=== PATIENT | female | born 1965 | race Caucasian/White ===

== ENCOUNTER 2019-02-24 07:15 | Day surgery (SDC) | payer OTHER ==
[~2019-02-24] VITALS: Ht 167.6 cm; Wt 89.8 kg
--- NOTE | 2019-02-24 08:39 | NUR ---
02/24/19 0839 Alyssa Kearns 0821 PT ARRIVED IN PACU SLEEPY WITH NO C/O'S. ABD SOFT. 0830 SITTING UP IN BED SIPPING ON WATER.
--- NOTE | 2019-02-25 06:12 | OR ---
[facility] [address] [place], [place] [address] Signed DATE OF OPERATION: 02/24/2019 SURGEON: Lukas Lanza MD PREOPERATIVE DIAGNOSES: 1. Mother with colonic polyps in her 70s. 2. Brother with colonic polyps in his 50s. POSTOPERATIVE DIAGNOSES: 1. Minimal internal hemorrhoids. 2. Long redundant colon. PROCEDURE: Colonoscopy without biopsy. ESTIMATED BLOOD LOSS: None. INDICATIONS: Cristy is a 53-year-old, obese female, asked to see me for her initial colonoscopy. Her mother had colonic polyps in her 70s. In fact, she had part of her colon removed just a few years ago because of the polyps. Her brother has had colonic polyps removed in his 50s. She tells me she has no lower GI complaints. In the office, I gave her a brochure on colonoscopy. We had reviewed that together. She understands the nature of the test along with the risks including, but not limited to gas bloating, crampy abdominal pain, bleeding, perforation requiring surgery, and missed diagnosis. She also understands the need for IV conscious sedation. She had expressed understanding and wished to proceed. PROCEDURE NOTE: Cristy was taken into our endoscopy suite and placed in the left lateral decubitus position. She was given a total of 10 mg of Versed and 200 mcg of fentanyl to cover the case. A digital rectal exam was performed and this was unremarkable. After this, the camera was inserted and advanced under direct visualization of camera. She has a long redundant colon. Fortunately, she had an excellent prep. It took extra sedation and abdominal compression in order to advance the scope. We had to rotate Cristy into the supine position and back into the left lateral decubitus position and eventually made it up to the ileocecal valve. After this, the scope was slowly withdrawn. We saw no pathology throughout her entire colon or rectum. Upon retroflexion of the scope, she does have small internal hemorrhoid columns. After this, the gas was suctioned out and Electronically Signed By: LUKAS LANZA MD 02/25/19 0612 PATIENT NAME: CRISTY HE OPERATIVE REPORT DATE OF : 67 REPORT #: [id number] PHYSICIAN: LUKAS LANZA MD PCP: PERCY PAN MD REPORT IS CONFIDENTIAL AND NOT TO BE RELEASED WITHOUT AUTHORIZATION [address] [place], [place] [address] Signed colonoscope removed. Cristy tolerated the procedure quite well. RECOMMENDATIONS: Cristy can follow up in 5 years for repeat colonoscopy. MD MARY Buckner/JOSUEL /[id number] cc: MD Percy Buckner MD Copies: LUKAS LANZA MD, RUSSELL BARR MD ~ Electronically Signed By: LUKAS LANZA MD 02/25/19 0612 PATIENT NAME: CRISTY HE OPERATIVE REPORT DATE OF : 67 REPORT #: [id number] PHYSICIAN: LUKAS LANZA MD PCP: PERCY PAN MD REPORT IS CONFIDENTIAL AND NOT TO BE RELEASED WITHOUT AUTHORIZATION
== END 2019-02-24 09:00 | disposition home or self-care (01) ==
LOC: DS 07:15 → OPS 07:15 → DS 08:15 → OPS 08:15
PROVIDERS: Colon & Rectal Surgery
PROC: 0DJD8ZZ Inspection of Lower Intestinal Tract, Via Natural or Artificial Opening Endoscopic (ICD-10-PCS; principal; 2019-02-24 08:15)
DX: Z12.11 Encounter for screening for malignant neoplasm of colon (principal); K64.8 Other hemorrhoids; Q43.8 Other specified congenital malformations of intestine; Z88.2 Allergy status to sulfonamides; Z83.71 Family history of colonic polyps; Z98.890 Other specified postprocedural states
CPT/HCPCS: 99153; G0500; J2250; J3010; J7121

== ENCOUNTER 2019-12-31 06:00 | Day surgery (SDC) | payer OTHER ==
[~2019-12-31] VITALS: Ht 167.6 cm; Wt 89.0 kg
[~2019-12-31 06:00] MED LIST: FLUARIX QU60 MCG/0.7
[2019-12-31] MEDS ORDERED: MULTI VITAMIN1 EACH PO (06:20)
--- NOTE | 2019-12-31 07:08 | NUR ---
FARZAD TAVERA INTO ROOM AFTER EKG DONE, PATIENT MEDICATED FOR HIGH BLOOD PRESSURE. THEN PATIENT CASE HAS BEEN POSTPONED SECONDARY TO ANOTHER CASE BEING EMERGENT. PATIENT RESTING BACK IN BED. BP HAS LOWERED WITH MEDICATION 186/97 P 54 RR16 02 100%RA. PATIENT DENIES ANY DIZZINESS, APPEARS TO BE TOLERATING MEDICATION WELL. FARZAD TAVERA SET BP TO CYCLE [id number]. PATIENT AWARE OF BEING POSTPONED. PROVIDED WARM BLANKETS.
--- NOTE | 2019-12-31 07:20 | NUR ---
PATIENT RESTING WITH EYES CLOSED, AT BEDSIDE. BP IN THE 170S, SWITCHED TO LEFT ARM TO PROVIDE RIGHT ARM WITH A BREAK FROM BLOOD PRESSURES.
--- NOTE | 2019-12-31 08:20 | NUR ---
PATIENT CONTINUING TO REST BACK IN BED, BLOOD PRESSURE SUSTAINING IN THE 170S. NO NEEDS AT THIS TIME.
--- NOTE | 2019-12-31 10:14 | NUR ---
PATIENT BLOOD PRESSURE CONTINUES TO AVERAGE 170S SYSTOLIC. PATIENT APPEARS CALM RESTING BACK IN BED. NO COMPLAINTS OF PAIN. HAS BEEN UP TO BATHROOM.
--- NOTE | 2019-12-31 10:38 | NUR ---
PATIENT TO OR.
--- NOTE | 2019-12-31 12:29 | NUR ---
12/31/19 1229 Sheets,Pooja 1218 PT ARRIVED TO PACU ON 10L VIA MASK, PT WAKES TO VERBAL STIMULI AND IS REORIENTED TO PACU. RESP EVEN AND UNLABROED.
--- NOTE | 2019-12-31 12:37 | EKG ---
[facility] [address] [facility] [place], [place] [address] Signed Normal sinus rhythm Normal ECG No previous ECGs available Confirmed by MAGGIE IZQUIERDO MD ([id number]) on 12/31/2019 12:36:52 PM Electronically Signed By: MAGGIE IZQUIERDO MD 12/31/19 1237 PATIENT NAME: DERRICK HE Electrocardiogram DATE OF : 67 PHYSICIAN: MAGGIE IZQUIERDO MD REPORT #: [id number] REPORT IS CONFIDENTIAL AND NOT TO BE RELEASED WITHOUT AUTHORIZATION
--- NOTE | 2019-12-31 13:08 | NUR ---
PATIENT BACK TO ROOM FROM PACU, BEDSIDE REPORT ANNALEE SALINAS. DRESSING TO LAP SITES OF ABDOMEN C/D/I. SUN PAD DRY. DIANA IN PLACE, VOIDING FLOURESCENT YELLOW URINE. PATIENT APPEARS DROWSY, RESTING EYES. DR. SMITH CALLED AND NOTIFIED PATIENT OF SURGERY. CALL LIGHT WITH REACH, WARM AIR AT BEDSIDE. NO OTHER NEEDS AT THIS TIME.
--- NOTE | 2019-12-31 13:48 | NUR ---
PATIENT TOLERATING SIPS OF WATER AND SNACKS. NO NAUSEA. REPORTS PAIN NOW 6/10 ON PAIN SCALE, REPORTS SHARP CRAMPING. REQUESTING PAIN MEDICATION. ADMINISTERED PAIN MEDICATION PER APR.
--- NOTE | 2019-12-31 14:15 | NUR ---
PATIENT REQUESTED SECOND PAIN PILL PER MEDICATION ORDER ON APR. PATIENT STATES PAIN MORE TOLERABLE. PLAN TO GET UP AND AMBULATE ONCE PAIN MEDICATION IS EFFECTIVE. NO OTHER NEEDS AT THIS TIME.
--- NOTE | 2019-12-31 15:03 | NUR ---
BANDAIDS TO ABDOMEN C/D/I. PATIENT REPORTS PAIN WELL CONTROLLED. UP AMBULATING IN HALLS, STEADY ON FEET. REMOVED DIANA CATHETER WITH 1200 IN BAG OF FLOURESCENT YELLOW URINE. PATIENT BACK TO BED, PROVIDED JUICE AND ICE WATER. PATIENT RESTING BACK IN BED, CALL LIGHT WITHIN REACH.
--- NOTE | 2019-12-31 15:30 | NUR ---
PATIENT UP AND VOIDED 400 ML OF FLOURESCENT YELLOW URINE, BLADDER SCAN <50 ML. PATIENT REPORTS WANTING TO GO HOME. CALLED AND LET HIM KNOW PATIENT WAS GETTING READY TO GO. PATIENT REPORTS PAIN WELL CONTROLLED 2/10 ON PAIN SCALE. NO NAUSEA.
--- NOTE | 2019-12-31 16:30 | NUR ---
PROVIDED PATIENT WITH DISCHARGE INSTRUCTION. ANSWERED QUESTIONS AND CONCERNS. PROVIDED PATIENT WHEELCHAIR RIDE TO FRONT. SCRIPT IN FOLDER. PATIENT ABLE TO TRANSFER INTO CAR WELL.
--- NOTE | 2020-01-03 09:44 | OR ---
[facility] [address] [place], [place] [address] Signed DATE OF OPERATION: 12/31/2019 SURGEON: Bakari Saenz MD Patient of Dr. Saenz PREOPERATIVE DIAGNOSIS: Simple and complex endometrial hyperplasia without atypia. POSTOPERATIVE DIAGNOSIS: Simple and complex endometrial hyperplasia without atypia. PROCEDURE: Total laparoscopic hysterectomy with bilateral salpingectomy and cystoscopy. ASSISTANTS: 1. Dr. Alyssa Chirinos. 2. Dr. Micah Henriquez. ANESTHESIA: General. ESTIMATED BLOOD LOSS: 10 mL. COMPLICATIONS: None. DRAINS: Elias to bladder. FINDINGS: Anterior cul-de-sac was minimally scarred from previous , otherwise normal. The posterior cul-de-sac was free of any endometriosis or adhesions. The 2 uterosacral ligaments were somewhat close together in the midline, but no adhesions. Uterus normal size and shape. The left tube was very long. No evidence of endometriosis. No adhesions. Left ovary was slightly elongated, but normal-sized with a small, approximately 2 cm simple cyst on the end. No adhesions. The right tube was long, otherwise no adhesions and normal-appearing fimbriated end. The right ovary has normal size and shape without any evidence of endometriosis or adhesions. The rest of the Electronically Signed By: BAKARI SAENZ MD 01/03/20 0944 PATIENT NAME: DERRICK HE OPERATIVE REPORT DATE OF : 67 REPORT #: [id number] PHYSICIAN: BAKARI SAENZ MD PCP: PERCY WESTON MD REPORT IS CONFIDENTIAL AND NOT TO BE RELEASED WITHOUT AUTHORIZATION [facility] [address] [place], [place] [address] Signed pelvis was free of any masses or adhesions. DESCRIPTION OF PROCEDURE: The patient was brought into the operating room, placed in supine position. After adequate general anesthesia was obtained, was placed in the dorsal lithotomy position, prepped and draped in usual sterile fashion. Elias catheter was placed in the bladder. A weighted speculum was placed in the vagina and the anterior lip of cervix grasped with an Allis clamp. The cervix was serially dilated up to a #7 [place] Island[place] dilator and then the [employer] uterine manipulator was inserted into the uterine fundus. The balloon filled with water. Allis clamp and weighted speculum were removed and the cervical cap slid up against the cervix. The vaginal cup was then slid up against the cervical cap and tightened in place to hold the cervical cap around the cervix. Attention was then drawn to the abdomen. A small infraumbilical skin incision was made with a scalpel after injecting the area with 0.25% Marcaine with epinephrine. The subcutaneous tissue was dissected with Metzenbaum scissors and the fascia identified, grasped, hemostats elevated, nicked with Metzenbaum scissors, and extended in transverse fashion using Metzenbaum scissors. Retention stitches of 0 Vicryl suture were placed above and below the incision. Finger dissection was used to bluntly enter the peritoneum and the Quentin cannula and sleeve then entered the abdomen under direct visualization. The balloon was filled and the outer sleeve placed down on the skin and tightened in place. The two retention stitches were attached to the sleeve to help further support the sleeve. The trocar was removed and laparoscope with video attachment entered the abdomen under direct visualization. Carbon dioxide was used as distending medium. The above findings were noted. On the left side just below the level of the umbilicus approximately 10 cm lateral to the midline skin, the abdominal wall was transilluminated to attempt to avoid any vessels. The area injected with 0.25% Marcaine with epinephrine and then a small skin incision made with a scalpel. A bladed 5-mm trocar and sleeve entered the abdomen under direct visualization. The trocar was removed and the balloon filled with air. Blunt grasper inserted through this port. On the right side again, approximately 10 cm lateral to midline and just below the level of the umbilicus, the abdominal wall was transilluminated. The area injected with 0.25% Marcaine with epinephrine and a skin incision made. A Veress needle with expandable sleeve was placed in the abdomen under direct visualization. The Veress needle was removed and expandable trocar with port was placed through the expandable sleeve under direct visualization into the abdomen. The trocar was removed and 2nd grasper inserted. The above findings were confirmed. The Liga-Sure bipolar cautery forceps were then used for dissection. Both fallopian tubes were removed by cauterizing down the length of the mesosalpinx and then at the proximal end of the tube, cauterizing and cutting across the tube and removing the tubes through the right lateral port. The right utero-ovarian ligament was then cauterized in Electronically Signed By: BAKARI SAENZ MD 01/03/20 0944 PATIENT NAME: DERRICK HE OPERATIVE REPORT DATE OF : 67 REPORT #: [id number] PHYSICIAN: BAKARI SAENZ MD PCP: PERCY WESTON MD REPORT IS CONFIDENTIAL AND NOT TO BE RELEASED WITHOUT AUTHORIZATION [address] [address] Signed several places and cut and the right round ligament cauterized in several places and cut, and upper broad ligament cauterized and cut. The anterior and posterior leaves of the broad ligament were then , cauterized, and cut down the length of the broad ligament close to the uterus and down to the cup staying inside the cup and extending the dissection to the midline. The uterine vessels were then exposed and these were cauterized in several places and cut then the paravaginal tissue within the cervical cap, which could be palpated, was cauterized and cut down leaving just the vaginal wall. Same procedure was done on the left side, cauterizing the uteroovarian ligament in 3 places and cutting this, cauterizing and cutting the round ligament and upper pedicle and then individually cauterizing and cutting the anterior posterior leaves of the broad ligament near the uterus and extending this dissection inside the cervical cap to join the previous dissection from the other side. The uterine vessels on this side were exposed. Then, once visualized, were cauterized at several places and cut again staying inside the cervical cap, which could be palpated. The paravaginal tissue was cauterized and cut down to the vaginal wall. At this point, the Sonicision was brought into the operating field and posterior colpotomy made in the groove of the cervical cap in the midline and the dissection carried out through the vaginal wall in the groove of the cervical cap from posterior to anterior on the right and then posterior to anterior on the left, joining anteriorly in the midline the uterus and cervix from the vaginal wall. The uterus was brought out through the vagina and a lap filled glove placed in the vagina to allow the abdomen to be re-insufflated. The entire pelvis was irrigated, suctioned, and examined and noted to have good hemostasis. The Endo Stitch with barbed suture was then placed through the right port and the Endo Stitch was then used to close the vaginal cuff, starting at the right uterosacral ligament and stitching from posterior to anterior through the posterior cuff, placing the suture through the loop at the end of the suture and then placing the suture from posterior to anterior in the anterior edge of the cuff at the right angle. The stitches were continued posterior to anterior individually closing the posterior edge and the anterior edge across from right to left until reaching the left uterosacral ligament. The cuff extended slightly past the uterosacral ligaments, which were somewhat close to midline, so the left angle was closed in the final two stitches superficially through just the mucosa avoiding tenting or taking any deep stitches to avoid the ureter. Upon reaching the angle, the stitch was taken back through the combined cuff to the midline and laparoscopic scissors used to cut the suture against the vaginal wall. The entire pelvis was re-examined, irrigated, suctioned, examined, and noted to have good hemostasis. At this point, all instruments were removed. The gas allowed to escape and the sleeves removed. The infraumbilical incision was closed using running stitch of 0 Vicryl suture. The two retention stitches were tied together Electronically Signed By: BAKARI SAENZ MD 01/03/20 0944 PATIENT NAME: DERRICK EH OPERATIVE REPORT DATE OF : 67 REPORT #: [id number] PHYSICIAN: BAKARI SAENZ MD PCP: PERCY WESTON MD REPORT IS CONFIDENTIAL AND NOT TO BE RELEASED WITHOUT AUTHORIZATION [address] [address] Signed for further support. The 3 skin incisions were closed using subcuticular stitches of 4-0 Vicryl. The lap filled glove was removed from the vagina. Elias catheter removed and cystoscopy performed. This was done by placing a 70-degree cystoscope through the urethra while using sterile water as distending medium and entering the bladder. The entire bladder was inspected. The dome and both sides were noted to be free of any holes, puckering, or sutures. Both ureteral orifices were identified and showed good flow of urine, so the cystoscope was removed, the bladder drained, and the sleeve removed. The Elias catheter was placed back in the bladder. The patient tolerated the procedure well, went to recovery room in good condition. The sponge, needle, and instrument count were correct at the end of the procedure. The uterus, cervix, and fallopian tubes were sent to Pathology for identification. Bakari Saenz MD MJB/MODL /[id number] cc: Percy Weston MD Copies: PERCY WESTON MD ~ Electronically Signed By: BAKARI SAENZ MD 01/03/20 0944 PATIENT NAME: DERRICK HE OPERATIVE REPORT DATE OF : 67 REPORT #: [id number] PHYSICIAN: BAKARI SAENZ MD PCP: PERCY WESTON MD REPORT IS CONFIDENTIAL AND NOT TO BE RELEASED WITHOUT AUTHORIZATION
--- NOTE | 2020-01-05 12:14 | PATH ---
[facility] [address] [place], [place] [address] Signed SPECIMEN(S): A CERVIX, UTERUS, AND TUBES SPECIMEN SOURCE: A. CERVIX, UTERUS, AND TUBES CLINICAL HISTORY: Benign endometrial hyperplasia. TLH, BS, cysto. FINAL PATHOLOGIC DIAGNOSIS: Uterus, cervix, and bilateral fallopian tubes, hysterectomy and bilateral salpingectomy: - Cervix: No histopathologic abnormality. - Endometrium: Focal simple hyperplasia arising in a background of proliferative endometrium. - Myometrium: Adenomyosis and leiomyomata (1.0 cm in greatest dimension). - Serosa: No histopathologic abnormality. - Fallopian tubes: No histopathologic abnormality. - Negative for malignancy. COMMENT: As part of [employer] Quality Improvement Program, selected slides of this case were reviewed by another member of our pathology staff. The endometrium is poorly preserved, thus multiple additional sections of endometrium are examined; no carcinoma is identified. NAL:NRT:cml:C2NR MICROSCOPIC EXAMINATION: Histologic sections of all submitted blocks are examined by light microscopy. These findings, together with the gross examination, support the pathologic diagnosis. GROSS DESCRIPTION: The specimen, labeled "MC," and designated on the requisition "cervix, uterus, bilateral fallopian tubes," is received in formalin and consists of a uterus (102 gram, 7.0 x 6.2 x 4.2 cm), attached cervix (2.0 cm in length x 2.3 cm in diameter with pink-villagomez to hemorrhagic, roughened cervical mucosa and patent circular os (0.6 cm in diameter) and two detached pink-villagomez, fimbriated fallopian tubes (7.7 cm in length x 0.6 cm in diameter and 7.9 cm in length x 1.0 cm in diameter). One fallopian tube is arbitrarily inked blue and both fallopian tubes are serially sectioned to reveal a grossly PATIENT NAME: DERRICK HE PATHOLOGY DATE OF : 67 REPORT #: [id number] PHYSICIAN: ELADIO PATHOLOGY PCP: PERCY PAN MD REPORT IS CONFIDENTIAL AND NOT TO BE RELEASED WITHOUT AUTHORIZATION [facility] [address] [place], [place] [address] Signed unremarkable cut surface. The uterine serosa is pink-villagomez to congested and smooth. The uterus and cervix are opened to reveal a pink-villagomez, roughened endocervix (endocervical canal: 2.0 cm in length x 0.8 cm in diameter) and an endometrial cavity (5.6 cm superior to inferior x 3.0 cm cornu to cornu) with hemorrhagic endometrial lining that measures up to 0.2 cm in thickness). The myometrium is pink-villagomez with multiple intramural and submucosal white-villagomez, well-circumscribed nodules (ranging in size from 0.1-1.0 cm in greatest dimension). Import Dispatcher sections are submitted as follows: Cassette Summary: (A1) Fallopian tubes (A2) Cervix (A3) Endomyometrium (A4) Myometrial nodules AC (under the direct supervision of a pathologist) The Gross Description was prepared using a voice recognition system. The report was reviewed for accuracy; however, sound-alike word errors, addition and/or deletions may occur. If there is any question about this report, please contact Client Services. PERFORMING LABORATORY: The technical component was performed by [employer], [address] [place] [id number] (Teacher Dancing: Madai Larios MD; CLIA# [id number]). Professional interpretation was performed by [employer], [place] branch, [address] [place] [address] [facility] [address] [address] (CLIA# [id number]). Diagnostician: Maureen Hinojosa MD Pathologist Electronically Signed 01/05/2020 Copies: ~ PATIENT NAME: DERRICK HE PATHOLOGY DATE OF : 67 REPORT #: [id number] PHYSICIAN: ELADIO PATHOLOGY PCP: PERCY PAN MD REPORT IS CONFIDENTIAL AND NOT TO BE RELEASED WITHOUT AUTHORIZATION
== END 2019-12-31 16:30 | disposition home or self-care (01) ==
LOC: DS 06:00 → OPS 06:00 → DS 09:30 → OPS 16:30
PROVIDERS: ATTEND General Practice
PROC: 0UT94ZZ Resection of Uterus, Percutaneous Endoscopic Approach (ICD-10-PCS; principal; 2019-12-31 06:45)
PROC: 0UT74ZZ Resection of Bilateral Fallopian Tubes, Percutaneous Endoscopic Approach (ICD-10-PCS; 2019-12-31 06:45)
DX: N85.01 Benign endometrial hyperplasia (principal); N83.292 Other ovarian cyst, left side; N80.0 Endometriosis of uterus; D25.9 Leiomyoma of uterus, unspecified; J30.2 Other seasonal allergic rhinitis; F32.9 Major depressive disorder, single episode, unspecified; Z88.2 Allergy status to sulfonamides
CPT/HCPCS: 00840; 93005; 93010; J0330; J0690; J1100; J1644; J1885; J2250; J2405; J2704; J2765; J3010; J7121